=== PATIENT | male | born 1965 | race Caucasian/White ===

== ENCOUNTER 2020-12-14 08:40 | Emergency (ER) | payer OTHER ==
[~2020-12-14] VITALS: Ht 170.2 cm; Wt 82.0 kg
[2020-12-14 08:49] VITALS: BP 136/80
== END 2020-12-14 09:27 | disposition home or self-care (01) ==
LOC: ER 08:40
DX: T16.1XXA Foreign body in right ear, initial encounter (principal); X58.XXXA Exposure to other specified factors, initial encounter; Y93.89 Activity, other specified; Y92.89 Other specified places as the place of occurrence of the external cause
CPT/HCPCS: 69200; 99284